=== PATIENT | male | born 1980 | race Caucasian/White ===

== ENCOUNTER 2017-10-12 17:48 | Emergency (ER) | payer OTHER ==
[~2017-10-12] VITALS: Ht 162.6 cm; Wt 72.6 kg
[2017-10-12] MEDS ORDERED: METFORMIN HCL1000 M1 ORAL (17:57)
[2017-10-12] MEDS ORDERED: Hydrogen Peroxide 473ml Bottle TOPIC ONE ×2 (18:43→18:45)
[2017-10-12 18:46] VITALS: BP 149/90
--- NOTE | 2017-10-12 18:46 | Emergency Room Report ---
History of Present Illness General Chief Complaint: Upper Extremity Injury Source: Patient Present Illness HPI 36-year-old male presenting with left thumb pain. Patient states that he accidentally banged it with a hammer. Sustained a slight open wound to pulp of left thumb. Also darkening of the nail. Denies any other injuries. Tetanus is up-to-date Allergies: Coded Allergies: No Known Allergies (Unverified , 10/12/17) Patient History Past Medical History: see triage record Past Surgical History: none Pertinent Family History: none Reviewed Nursing Documentation: PMH: Agreed, PSxH: Agreed Nursing Documentation-PMH Hx Diabetes: Yes Review of Systems All Other Systems: negative except mentioned in HPI Physical Exam Vital Signs Date Time Temp Pulse Resp B/P (MAP) Pulse Ox O2 Delivery O2 Flow Rate FiO2 10/12/17 17:55 98.1 86 20 149/90 99 Room Air Sp02 EP Interpretation: reviewed, normal General Appearance: normal inspection, well appearing, no apparent distress, alert, GCS 15, non-toxic Head: normocephalic, atraumatic Eyes: bilateral eye normal inspection, bilateral eye PERRL, bilateral eye EOMI ENT: normal ENT inspection, normal pharynx, normal voice, moist mucus membranes Neck: normal inspection, full range of motion, supple Respiratory: normal inspection, lungs clear, normal breath sounds, no respiratory distress, no retraction, no wheezing, speaking full sentences, chest symmetrical Cardiovascular #1: normal inspection, regular rate, rhythm, normal capillary refill Cardiovascular #2: 2+ radial (R), 2+ radial (L) Gastrointestinal: normal inspection, non tender, soft, non-distended, no guarding Musculoskeletal: other - Left thumb, subungual hematoma, open wound in, less than half of a centimeter, slight soft tissue protruding, there is no active bleeding, full range of motion, thumb is tender to palpation Neurologic: normal inspection, alert, oriented x3, responsive, motor strength/ tone normal, sensory intact, normal gait, speech normal Psychiatric: normal inspection, judgement/insight normal, memory normal Skin: normal inspection, normal color, no rash, warm/dry, well hydrated, normal turgor Procedures Additional Procedure Procedure Narrative Procedure: Nail trephination Left thumb Irrigated with normal saline, Betadine prep Digital block with 1% lidocaine, 3 mL used 18-gauge needle used to make puncture in nail No complications patient tolerated the procedure well Medical Decision Making Diagnostic Impression: Primary Impression: Subungual hematoma of finger Additional Impression: Contusion of thumb, left ER Course 36-year-old male, left thumb pain after hitting it with a hammer DDX: Bungle hematoma, rule out fracture, slight puncture wound Plan: Nail trephination, x-ray ER course: Patient has remained stable during ED stay. Already got Motrin by patient's X-ray negative Disposition: Patient is to be discharged to home. Patient is instructed to follow up with their primary care doctor within 3 days. Strict return precautions discussed with patient such as fever, chills, worsening/severe pain, redness, purulent drainage,which may indicate severe illness. Patient verbalizes understanding and agrees with plan. Please note that this Emergency Department Report was dictated using [employer] helper technology software, occasionally this can lead to erroneous entry secondary to interpretation by the dictation equipment Xray: Left hand Complete Indication: Pain EP Interpretation: Yes Interpretation: No dislocation, no soft tissue swelling, no fractures Impression: No acute disease Electronically signed by Carie Briones MD Last Vital Signs Date Time Temp Pulse Resp B/P (MAP) Pulse Ox O2 Delivery O2 Flow Rate FiO2 10/12/17 17:55 98.1 86 20 149/90 99 Room Air Disposition: HOME, SELF-CARE Condition: Improved Patient Instructions: Subungual Hematoma, [id number] Additional Instructions: PLEASE FOLLOW UP WITH YOUR DOCTOR IN 1 WEEK PLEASE RETURN TO THE EMERGENCY ROOM IF YOU ARE EXPERIENCING WORSENING PAIN, REDNESS, YELLOW DRAINAGE, FEVER OR CHILLS. Carie Briones M.D. Oct 12, 2017 18:46
[2017-10-12] MEDS ORDERED: Bacitracin Oint UD TOPIC ONE ×2 (19:07→19:15)
[2017-10-12 19:16] VITALS: BP 149/90
--- NOTE | 2017-10-13 11:31 | Diagnostic Imaging Report ---
Indication: PAIN, thumb injury Technique: 3 views left hand Comparison: none Findings: No acute fractures. No dislocations. The joint spaces are preserved. Slight deformity of the base of the fifth metacarpal could represent sequela of old injury. Small ossific densities in the dorsal carpal region on the lateral view only could represent old triquetral injury. Tiny bone island is seen within the radial styloid Impression: No acute process Chronic appearing findings as described
== END 2017-10-12 19:19 | disposition home or self-care (01) ==
LOC: EMR 18:27
DX: S60.112A Contusion of left thumb with damage to nail, initial encounter (principal); W22.8XXA Striking against or struck by other objects, initial encounter; Y93.9 Activity, unspecified; Y92.9 Unspecified place or not applicable; E11.9 Type 2 diabetes mellitus without complications
CPT/HCPCS: 11730; 73130; 99283; Z7502